=== PATIENT | female | born 1975 | race Caucasian/White ===

== ENCOUNTER → 2016-12-06 | Outpatient (CLI) | payer BC | LOC: COL.RAD 13:29 | DX: M25.531 Pain in right wrist (principal) | CPT/HCPCS: A9585; Q9967 ==

== ENCOUNTER → 2018-05-14 | Outpatient (CLI) | payer BC | LOC: MC.RAD 07:20 | DX: Z12.31 Encounter for screening mammogram for malignant neoplasm of breast (principal) ==

== ENCOUNTER → 2021-05-10 | Outpatient (CLI) | payer BC | LOC: MC.RAD 08:57 | DX: Z12.31 Encounter for screening mammogram for malignant neoplasm of breast (principal) ==

== ENCOUNTER → 2023-06-27 | Outpatient (CLI) | payer BC | LOC: MC.RAD 10:48 | DX: Z12.31 Encounter for screening mammogram for malignant neoplasm of breast (principal) ==